=== PATIENT | female | born 1950 | race Caucasian/White ===

== ENCOUNTER → 2017-03-21 | Outpatient (CLI) | payer BC | LOC: RAD 13:32 | PROVIDERS: ATTEND Family Medicine | DX: Z12.31 Encounter for screening mammogram for malignant neoplasm of breast (principal) | CPT/HCPCS: 77067 ==

== ENCOUNTER → 2017-10-13 | Outpatient (CLI) | payer MEDICARE ==
[2017-10-13 14:47] LABS: BASOPHILS % (AUTO) 1 % (0-10); EOSINOPHILS # (AUTO) 0.2 10^3/uL (0.0-0.3); EOSINOPHILS % (AUTO) 2 % (0-10); HEMATOCRIT 34 % (35-52); LYMPHOCYTES # (AUTO) 1.5 X 10^3 (1.0-4.0); LYMPHOCYTES % (AUTO) 21 % (12-44); MEAN CORPUSCULAR HEMOGLOBIN 29 PG (25-34); MEAN CORPUSCULAR HGB CONC 33 G/DL (32-36); MEAN CORPUSCULAR VOLUME 90 FL (80-99); MEAN PLATELET VOLUME 10.4 FL (7.4-10.4); MONOCYTES # (AUTO) 0.6 X 10^3 (0.0-1.0); MONOCYTES % (AUTO) 9 % (0-12); NEUTROPHILS # (AUTO) 4.7 X 10^3 (1.8-7.8); NEUTROPHILS % (AUTO) 67 % (42-75); PLATELET COUNT 256 10^3/uL (130-400); RED BLOOD COUNT 3.73 10^6/uL (4.35-5.85); RED CELL DISTRIBUTION WIDTH 13.7 % (10.0-14.5); WHITE BLOOD COUNT 7.1 10^3/uL (4.3-11.0)
[2017-10-13 15:10] LABS: ALANINE AMINOTRANSFERASE 27 U/L (0-55); ALBUMIN 3.7 GM/DL (3.2-4.5); ALKALINE PHOSPHATASE 112 U/L (40-136); BILIRUBIN,TOTAL 0.6 MG/DL (0.1-1.0); BUN/CREATININE RATIO 21; CALCIUM 9.4 MG/DL (8.5-10.1); CARBON DIOXIDE 25 MMOL/L (21-32); CHLORIDE 107 MMOL/L (98-107); CREATININE SERUM 0.63 MG/DL (0.60-1.30); GFR ESTIMATED > 60; GLUCOSE 125 MG/DL (70-105); SODIUM 144 MMOL/L (135-145); TOTAL PROTEIN 6.9 GM/DL (6.4-8.2)
== END ==
LOC: HH 08:00
PROVIDERS: ATTEND Family Medicine
DX: R00.0 Tachycardia, unspecified (principal)
CPT/HCPCS: 80053; 84443; 85025

== ENCOUNTER 2018-10-23 21:08 | Emergency (ER) | payer MEDICARE ==
[~2018-10-23] VITALS: Ht 154.9 cm; Wt 79.4 kg
[2018-10-23] MEDS ORDERED: GABA-488 (21:57)
[2018-10-23] MEDS ORDERED: LORA-714 PO (21:57)
[2018-10-23] MEDS ORDERED: MELO15TA39 (21:57)
[2018-10-23] MEDS ORDERED: NF-ESOM40C PO (21:57)
[2018-10-23] MEDS ORDERED: TRAM50TA2 (21:57)
[2018-10-23] MEDS ORDERED: ATOR10TA66 (21:57)
--- OUTSIDE RECORDS SUMMARY | 2018-10-23 22:09 | XMS REPORT | Continuity of Care Document ---
Author Organization Unknown Address Unknown Allergies Active Description Code Type Severity Reaction Onset Reported/Identified Relationship to Patient Clinical Status Yes IODINE AND CIPRO IODINE AND CIPRO Unknown N/A 03/20/2010 Medications There is no data. Problems Date Dx Coded Attending Type Code Diagnosis Diagnosed By 03/20/2010 Ot 211.3 03/20/2010 Ot 285.9 03/20/2010 Ot 530.81 03/20/2010 Ot 553.3 03/20/2010 Ot 578.1 12/16/2014 Ot 783.21 12/16/2014 Ot 786.2 12/16/2014 Ot 285.9 12/16/2014 Ot 285.9 12/16/2014 Ot 535.50 12/16/2014 Ot 792.1 12/16/2014 Ot V76.12 12/16/2014 Ot 786.50 12/16/2014 Ot 959.11 12/16/2014 Ot E000.8 12/16/2014 Ot E849.0 12/16/2014 Ot E888.9 12/16/2014 KANDACE FLEMING DO Ot V76.12 12/16/2014 KANDACE FLEMING DO Ot 793.80 12/16/2014 KANDACE FLEMING DO Ot 611.89 12/16/2014 KANDACE FLEMING DO Ot V67.59 12/30/2014 KANDACE FLEMING DO Ot V76.12 02/09/2016 Ot V76.12 OTH SCREEN MAMMO- MALIGN NEOPLASM OF MOISES 02/09/2016 Ot 786.50 CHEST PAIN NOS 02/09/2016 Ot 959.11 OTH INJURY OF CHEST WALL 02/09/2016 Ot E000.8 OTHER EXTERNAL CAUSE STATUS 02/09/2016 Ot E849.0 ACCIDENT IN HOME 02/09/2016 Ot E888.9 FALL NOS 02/09/2016 KANDACE FLEMING DO Ot V76.12 OTH SCREEN MAMMO-MALIGN NEOPLASM OF MOISES 02/09/2016 GELLENDER DO, KANDACE Mcgee Ot 793.80 UNSPEC ABNORMAL MAMMOGRAM 02/09/2016 GELLENDER DO, KANDACE Mcgee Ot 611.89 OTHER SPECIFIED DISORDERS OF BREAST 02/09/2016 GELLENDER DO, KANDACE Mcgee Ot V67.59 FOLLOW-UP EXAM NEC 02/09/2016 GELLENDER DO, KANDACE Mcgee Ot V76.12 OTH SCREEN MAMMO-MALIGN NEOPLASM OF MOISES 02/14/2016 GELLENDER DO, KANDACE Mcgee Ot Z12.31 ENCNTR SCREEN MAMMOGRAM FOR MALIGNANT NE 02/22/2016 GELLENDER DO, KANDACE Mcgee Ot Z12.31 ENCNTR SCREEN MAMMOGRAM FOR MALIGNANT NE 04/03/2017 GELLENDER DO, KANDACE Mcgee Ot Z12.31 ENCNTR SCREEN MAMMOGRAM FOR MALIGNANT NE 10/13/2017 GELLENDER DO, KANDACE Mcgee Ot V76.12 OTH SCREEN MAMMO-MALIGN NEOPLASM OF MOISES 10/13/2017 GELLENDER DO, KANDACE Mcgee Ot 793.80 UNSPEC ABNORMAL MAMMOGRAM 10/13/2017 GELLENDER DO, KANDACE Mcgee Ot 611.89 OTHER SPECIFIED DISORDERS OF BREAST 10/13/2017 GELLENDER DO, KANDACE Mcgee Ot V67.59 FOLLOW-UP EXAM NEC 10/13/2017 GELLENDER DO, KANDACE Mcgee Ot V76.12 OTH SCREEN MAMMO-MALIGN NEOPLASM OF MOISES 10/13/2017 GELLENDER DO, KANDACE Mcgee Ot Z12.31 ENCNTR SCREEN MAMMOGRAM FOR MALIGNANT NE 10/13/2017 GELLENDER DO, KANDACE Mcgee Ot Z12.31 ENCNTR SCREEN MAMMOGRAM FOR MALIGNANT NE 10/14/2017 GELLENDER DO, KANDACE Mcgee Ot R00.0 TACHYCARDIA, UNSPECIFIED 11/06/2017 GELLENDER DO, KANDACE Mcgee Ot R00.0 TACHYCARDIA, UNSPECIFIED 05/08/2018 GELLENDER DO, KANDACE Mcgee Ot V76.12 OTH SCREEN MAMMO-MALIGN NEOPLASM OF MOISES 05/08/2018 GELLENDER DO, KANDACE Mcgee Ot 793.80 UNSPEC ABNORMAL MAMMOGRAM 05/08/2018 GELLENDER DO, KANDACE Mcgee Ot 611.89 OTHER SPECIFIED DISORDERS OF BREAST 05/08/2018 GELLENDER DO, KANDACE Mcgee Ot V67.59 FOLLOW-UP EXAM NEC 05/08/2018 GELLENDER DO, KANDACE Mcgee Ot V76.12 OTH SCREEN MAMMO-MALIGN NEOPLASM OF MOISES 05/08/2018 GELLENDER DO, KANDACE Mcgee Ot Z12.31 ENCNTR SCREEN MAMMOGRAM FOR MALIGNANT NE 05/08/2018 GELLENDER DO, KANDACE Mcgee Ot Z12.31 ENCNTR SCREEN MAMMOGRAM FOR MALIGNANT NE 05/08/2018 GELLENDER DO, KANDACE Mcgee Ot R00.0 TACHYCARDIA, UNSPECIFIED 05/08/2018 GELLENDER DO, KANDACE Mcgee Ot Z12.31 ENCNTR SCREEN MAMMOGRAM FOR MALIGNANT NE 05/11/2018 GELLENDER DO, KANDACE Mcgee Ot Z12.31 ENCNTR SCREEN MAMMOGRAM FOR MALIGNANT NE 05/29/2018 GELLENDER DO, KANDACE Mcgee Ot Z12.31 ENCNTR SCREEN MAMMOGRAM FOR MALIGNANT NE Procedures There is no data. Results Test Result Range Complete blood count (CBC) with automated white blood cell (WBC) differential - 10/13/17 14:41 Blood leukocytes automated count (number/volume) 7.1 10*3/uL 4.3-11.0 Blood erythrocytes automated count (number/volume) 3.73 10*6/uL 4.35-5.85 Venous blood hemoglobin measurement (mass/volume) 11.0 g/dL 11.5-16.0 Blood hematocrit (volume fraction) 34 % 35-52 Automated erythrocyte mean corpuscular volume 90 [foz_us] 80-99 Automated erythrocyte mean corpuscular hemoglobin (mass per erythrocyte) 29 pg 25-34 Automated erythrocyte mean corpuscular hemoglobin concentration measurement (mass/volume) 33 g/dL 32-36 Automated erythrocyte distribution width ratio 13.7 % 10.0- 14.5 Automated blood platelet count (count/volume) 256 10*3/uL 130-400 Automated blood platelet mean volume measurement 10.4 [foz_us] 7.4-10.4 Automated blood neutrophils/100 leukocytes 67 % 42-75 Automated blood lymphocytes/100 leukocytes 21 % 12-44 Blood monocytes/100 leukocytes 9 % 0-12 Automated blood eosinophils/100 leukocytes 2 % 0-10 Automated blood basophils/100 leukocytes 1 % 0-10 Blood neutrophils automated count (number/volume) 4.7 10*3 1.8-7.8 Blood lymphocytes automated count (number/volume) 1.5 10*3 1.0-4.0 Blood monocytes automated count (number/volume) 0.6 10*3 0.0- 1.0 Automated eosinophil count 0.2 10*3/uL 0.0-0.3 Automated blood basophil count (count/volume) 0.0 10*3/uL 0.0-0.1 Comprehensive metabolic panel - 10/13/17 14:41 Serum or plasma sodium measurement (moles/volume) 144 mmol/L 135-145 Serum or plasma potassium measurement (moles/volume) 4.0 mmol/L 3.6-5.0 Serum or plasma chloride measurement (moles/volume) 107 mmol/L 98-107 Carbon dioxide 25 mmol/L 21-32 Serum or plasma anion gap determination (moles/volume) 12 mmol/L 5-14 Serum or plasma urea nitrogen measurement (mass/volume) 13 mg/dL 7-18 Serum or plasma creatinine measurement (mass/volume) 0.63 mg/dL 0.60-1.30 Serum or plasma urea nitrogen/creatinine mass ratio 21 NRG Serum or plasma creatinine measurement with calculation of estimated glomerular filtration rate > NRG Serum or plasma glucose measurement (mass/volume) 125 mg/dL 70-105 Serum or plasma calcium measurement (mass/volume) 9.4 mg/dL 8.5-10.1 Serum or plasma total bilirubin measurement (mass/volume) 0.6 mg/dL 0.1-1.0 Serum or plasma alkaline phosphatase measurement (enzymatic activity/volume) 112 U/L 40-136 Serum or plasma aspartate aminotransferase measurement (enzymatic activity/volume) 21 U/L 5-34 Serum or plasma alanine aminotransferase measurement (enzymatic activity/volume) 27 U/L 0-55 Serum or plasma protein measurement (mass/volume) 6.9 g/dL 6.4-8.2 Serum or plasma albumin measurement (mass/volume) 3.7 g/dL 3.2-4.5 THYROID STIMULATING HORMONE - 10/13/17 14:41 THYROID STIMULATING HORMONE 0.85 u[iU]/mL 0.35-4.94 Encounters ACCT No. Visit Date/Time Discharge Status Pt. Type Provider Facility Loc./Unit Complaint [id number] 05/08/2018 14:16:00 05/08/2018 23:59:59 CLS Outpatient KANDACE FLEMING DO [facility] RAD SCREENING [id number] 10/13/2017 08:00:00 10/13/2017 23:59:59 CLS Outpatient KANDACE FLEMING DO [facility] HH ELEVATED HEART RATE [id number] 03/21/2017 13:32:00 03/21/2017 23:59:59 CLS Outpatient KANDACE FLEMING DO [facility] RAD YEARLY [id number] 02/09/2016 12:23:00 02/09/2016 23:59:59 CLS Outpatient KANDACE FLEMING DO [facility] RAD SCREENING [id number] 12/16/2014 13:21:00 12/16/2014 23:59:59 CLS Outpatient KANDACE FLEMING DO [facility] RAD SCREENING [id number] 08/13/2013 07:47:00 08/13/2013 23:59:59 CLS Outpatient KANDACE FLEMING DO [facility] RAD 6 MONTH EVALUATION [id number] 12/07/2012 12:37:00 12/07/2012 23:59:59 CLS Outpatient KANDACE FLEMING DO [facility] RAD ABN [facility] [id number] 11/25/2012 09:59:00 11/25/2012 23:59:59 CLS Outpatient KANDACE FLEMING DO [facility] RAD SCREENING [id number] 12/16/2014 13:21:00 Document Registration [id number] 01/21/2011 09:30:00 Document Registration [id number] 05/07/2010 07:28:00 Document Registration [id number] 03/20/2010 09:41:00 Document Registration [id number] 02/28/2010 12:18:00 Document Registration [id number] 02/27/2010 12:11:00 Document Registration
[2018-10-23] MEDS ORDERED: predniSONE 20 MG TAB PO ONE (22:15)
[2018-10-23] MEDS ORDERED: PRD20T PO (22:18)
--- NOTE | 2018-10-23 22:18 | ED Lower Extremity ---
General Chief Complaint: Lower Extremity Stated Complaint: REDNESS IN BOTH LEGS Nursing Triage Note: redness to bilateral lower legs today. Nursing Sepsis Screen: No Definite Risk History of Present Illness Date Seen by Provider: Oct 23, 2018 Time Seen by Provider: 20:05 Initial Comments 68-year-old female presents for a rash to bilateral lower extremities. She denies any new skin products, detergents, or other irritants. She was working in her yard last evening and believes her family program specialist may have put chemicals on the yard. 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 Onset: this afternoon Pain/Injury Location: bilateral leg (lower legs distal to the knee) Method of Injury: unknown Allergies and Home Medications Allergies Coded Allergies: Quinolones (Verified Allergy, Unknown, 10/23/18) Uncoded Allergies: IODINE AND CIPRO (Allergy, Unknown, 10/23/18) Patient Home Medication List Home Medication List Reviewed: Yes Review of Systems Constitutional: no symptoms reported, see HPI Skin: see HPI, rash All Other Systems Reviewed Negative Unless Noted: Yes Past Urbitzq-Ixsprq-Fpsyhn Hx Past Med/Social Hx: Reviewed Nursing Past Med/Soc Hx Patient Social History Alcohol Use: Rarely Uses Recreational Drug Use: No Smoking Status: Never a Smoker 2nd Hand Smoke Exposure: No Recent Foreign Travel: No Contact w/Someone Who Travel: No Recent Infectious Disease Expo: No Recent Hopitalizations: No Immunizations Up To Date Tetanus Booster (TDap): Unknown Seasonal Allergies Seasonal Allergies: Yes Past Medical History Surgeries: Yes Section, Orthopedic Respiratory: No Cardiac: Yes High Cholesterol Neurological: Yes 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 oz. 79.325066id; BMI Method:Stated General Appearance: WD/WN, no apparent distress Cardiovascular: normal peripheral pulses, regular rate, rhythm Respiratory: chest non-tender, lungs clear, normal breath sounds Neurologic/Psychiatric: no motor/sensory deficits, alert, normal mood/affect, oriented x 3 Skin: rash (petechial rash right lower extremity greater than left, anterior aspect only. No signs of cellulitis, no induration or warmth or erythema. Pedal pulses 2+ and symmetric, negative Homans sign.) Lymphatic: no adenopathy Progress/Results/Core Measures Results/Orders My Orders Orders - MALACHI GALLEGOS Prednisone Tablet (Deltasone Tablet) (10/23/18 22:15) Vital Signs/I&O 10/23/18 21:50 Temp 98.2 Pulse 106 Resp 18 B/P (MAP) 153/95 (114) Pulse Ox 96 O2 Delivery Room Air Blood Pressure Mean: 114 Departure Impression Primary Impression: Petechial rash Disposition: 01 HOME, SELF-CARE Condition: Improved Departure-Patient Inst. Decision time for Depature: 22:15 Referrals: KANDACE FLEMING DO (PCP/Family) Primary Care Physician Patient Instructions: Skin Rash (DC) Add. Discharge Instructions: Warm moist compresses to rash. Continue to use your normal skin care products. Take prednisone as directed. Follow-up with your primary care provider in 2-3 days if symptoms do not improve or worsen. Return to emergency department for fever greater than 101, signs of cellulitis, or new concerns. All discharge instructions reviewed with patient and/or family. Voiced understanding. Scripts Prednisone (Prednisone) 20 Mg Tab 40 MG PO DAILY, #6 TAB 0 Refills Prov: MALACHI GALLEGOS 10/23/18 MALACHI GALLEGOS Oct 23, 2018 22:18
[2018-10-23 22:21] VITALS: BP 153/95
== END 2018-10-23 22:21 | disposition home or self-care (01) ==
LOC: EDUNIT# 21:08 → ER 21:10
DX: R21 Rash and other nonspecific skin eruption (principal); E78.00 Pure hypercholesterolemia, unspecified; G62.9 Polyneuropathy, unspecified; K21.9 Gastro-esophageal reflux disease without esophagitis; Z88.8 Allergy status to other drugs, medicaments and biological substances; Z91.041 Radiographic dye allergy status; Z98.890 Other specified postprocedural states
CPT/HCPCS: 99283

== ENCOUNTER → 2019-03-16 | Outpatient (CLI) | payer MEDICARE ==
[~2019-03-16] MED LIST: ATOR10TA66; GABA-488; LORA-714 PO; MELO15TA39; NF-ESOM40C PO; PRD20T PO; TRAM50TA2
--- NOTE | 2019-03-16 13:06 | Diagnostic Imaging Report ---
INDICATION: Shortness of breath, history of Hodgkin's lymphoma 34 years ago.. TECHNIQUE: Two view chest 12:33 PM CORRELATION STUDY: 02/27/2010 FINDINGS: The heart size, mediastinal configuration and pulmonary vasculature are stable and within normal limits. Limited depth of inspiration some crowding at lung bases. No consolidating infiltrate. Slight accentuated thoracic kyphosis with degenerative changes of the thoracic spine. IMPRESSION: 1. Negative for acute abnormality of the chest. Dictated by: Dictated on workstation # [id number]
== END ==
LOC: RAD 12:14
PROVIDERS: ATTEND Family Medicine
DX: R06.02 Shortness of breath (principal); Z85.71 Personal history of Hodgkin lymphoma
CPT/HCPCS: 71046

== ENCOUNTER → 2021-04-18 | Outpatient (CLI) | payer MEDICARE ==
[~2021-04-18] MED LIST changes: +LORA-53 PO; -LORA-714 PO; -TRAM50TA2; +TRM50T
--- NOTE | 2021-04-18 15:07 | Diagnostic Imaging Report ---
PROCEDURE: CT abdomen and pelvis without contrast. TECHNIQUE: Multiple contiguous axial images were obtained through the abdomen and pelvis without the use of intravenous contrast. Auto Exposure Controls were utilized during the CT exam to meet ALARA standards for radiation dose reduction. INDICATION: Lymphoma, weight loss, left lower quadrant pain. I have no relevant comparison. FINDINGS: Spleen size normal and appeared nonfocal. Unopacified liver unremarkable. No biliary abnormality. There is a nonobstructing 3 mm stone within the left kidney. No hydroureteronephrosis. No perinephric or periureteric edema. No opaque ureteral stone. The unopacified bladder normal. Uterus and adnexa unremarkable. There is no diverticulitis. There is no evidence for appendicitis. There is no small or large bowel obstruction. No ascites, abscess, hematoma or acute fluid collection. No pneumatosis or free gas. Adrenals and pancreas unremarkable. The calcified aorta nonaneurysmal. Lung bases and bony structures appeared nonacute. IMPRESSION: 1. No adenopathy, organomegaly or mass. No bowel, biliary or urinary tract obstruction and no inflammatory process or acute abnormalities. 2. Nonobstructing left kidney stone. Dictated by: Dictated on workstation # [id number]
== END ==
LOC: RAD 14:15
PROVIDERS: ATTEND Family Medicine
DX: C85.90 Non-Hodgkin lymphoma, unspecified, unspecified site (principal); N20.0 Calculus of kidney
CPT/HCPCS: 74176

== ENCOUNTER → 2021-05-01 | Outpatient (CLI) | payer MEDICARE ==
--- NOTE | 2021-05-01 14:17 | Diagnostic Imaging Report ---
INDICATION: Routine screening. COMPARISON: 05/08/2018 and 03/21/2017. TECHNIQUE: 2D and 3D bilateral screening mammography was performed with CAD. FINDINGS: Both breasts are heterogeneously dense, limiting the sensitivity of mammography. Benign nodules in both breasts appear stable. No new mass or malignant-appearing microcalcifications are seen. There are benign calcifications in both breasts. The axillae are unremarkable. IMPRESSION: No mammographic features suspicious for malignancy are identified. ACR BI-RADS Category 2: Benign findings. Result letter will be mailed to the patient. Note: At least 10% of breast cancer is not imaged by mammography. Dictated by: Dictated on workstation # [id number]
== END ==
LOC: RAD 13:00
PROVIDERS: ATTEND Family Medicine
DX: Z12.31 Encounter for screening mammogram for malignant neoplasm of breast (principal)
CPT/HCPCS: 77063; 77067

== ENCOUNTER → 2021-07-24 | Outpatient (CLI) | payer MEDICARE ==
--- NOTE | 2021-07-24 11:19 | Diagnostic Imaging Report ---
PROCEDURE: CT urinary tract, rule out kidney stone. TECHNIQUE: Multiple contiguous axial images were obtained through the abdomen and pelvis without the use of intravenous contrast. Auto Exposure Controls were utilized during the CT exam to meet ALARA standards for radiation dose reduction. INDICATION: Left flank pain. Hematuria. History of non-Hodgkin's lymphoma. COMPARISON: 04/18/2021. FINDINGS: The heart is unremarkable. Numerous faint groundglass nodules are seen throughout the included lung bases, similar to the prior exam. Calculus is seen in the proximal left ureter measuring 0.4 cm with mild left-sided hydroureteronephrosis. No obstructing calculi are seen in the right kidney. No hydronephrosis on the right. The urinary bladder is nondistended. The liver, spleen, pancreas, and adrenal glands have a normal appearance. There is no pathologically enlarged mesenteric or retroperitoneal adenopathy. The bowel loops are nondilated. There is no free fluid or free air. No acute osseous abnormalities. There is calcified aortic and iliac atherosclerotic plaque without aneurysm. There is no free air, loculated collection, or adenopathy in the pelvis. IMPRESSION: 1. Obstructing calculus in the proximal left ureter measuring 0.4 cm with mild left-sided hydroureteronephrosis. 2. Stable appearance of faint groundglass opacities in the included lung bases. Consider dedicated evaluation with chest CT to further evaluate. Dictated by: Dictated on workstation # [id number]
== END ==
LOC: RAD 11:00
PROVIDERS: ATTEND Family Medicine
DX: N20.1 Calculus of ureter (principal); N13.30 Unspecified hydronephrosis; R91.8 Other nonspecific abnormal finding of lung field; Z85.72 Personal history of non-Hodgkin lymphomas
CPT/HCPCS: 74176

== ENCOUNTER → 2021-07-25 | Outpatient (CLI) | payer MEDICARE ==
--- NOTE | 2021-07-25 12:52 | Diagnostic Imaging Report ---
INDICATION: Nephrolithiasis. EXAMINATION: KUB at 12:47 PM. FINDINGS: There are two small opacities in the region of the left proximal ureter that could be ureteral calculi. There is a large amount of stool throughout the colon. There are some calcified phleboliths in the pelvis. IMPRESSION: Suspected left ureterolithiasis. Dictated by: Dictated on workstation # [id number]
== END ==
LOC: RAD 12:24
PROVIDERS: ATTEND Urology
DX: N20.2 Calculus of kidney with calculus of ureter (principal)
CPT/HCPCS: 74018

== ENCOUNTER → 2021-08-02 | Outpatient (CLI) | payer MEDICARE ==
[~2021-08-02] MED LIST changes: -ATOR10TA66; +ATOR10TA66 PO; -GABA-488; +GABA-488 PO; +KETO10TA PO; +METH-731 PO; +NITR-65 PO; -TRM50T; +TRM50T PO
--- NOTE | 2021-08-02 14:21 | Diagnostic Imaging Report ---
EXAMINATION: Abdomen 1 view HISTORY: LEFT URETERAL STONE COMPARISON: 07/25/2021 FINDINGS: There is a moderate amount of gas and stool throughout the colon. Nonobstructive bowel gas pattern. Stable 0.4 cm faint opacity overlying the left paraspinous abdomen which may correspond to the previously seen ureteral calculus. The osseous structures are intact. IMPRESSION: Stable appearance of 0.4 cm opacity overlying the expected location of the proximal left ureter. Dictated by: Dictated on workstation # [id number]
== END ==
LOC: RAD 13:26
PROVIDERS: ATTEND Urology
DX: N20.1 Calculus of ureter (principal)
CPT/HCPCS: 74018

== ENCOUNTER 2021-08-03 05:27 | Outpatient (CLI) | payer MEDICARE ==
[~2021-08-03] VITALS: Ht 154.9 cm; Wt 78.2 kg
[~2021-08-03 05:27] MED LIST changes: -KETO10TA PO; -METH-731 PO; -NITR-65 PO
[2021-08-06] MEDS ORDERED: METH-731 PO (10:48)
[2021-08-07] MEDS ORDERED: KETO10TA PO (11:10)
[2021-08-07] MEDS ORDERED: NITR-65 PO (11:10)
== END 2021-08-06 11:00 | disposition home or self-care (01) ==
LOC: PREOP 05:27
PROVIDERS: ATTEND Urology
DX: Z01.818 Encounter for other preprocedural examination (principal)

== ENCOUNTER 2021-08-07 07:48 | Day surgery (SDC) | payer MEDICARE ==
[~2021-08-07] VITALS: Ht 154.9 cm; Wt 78.2 kg
[2021-08-07] VITALS (10 sets, daily range): BP systolic 146–163; BP diastolic 69–89
[~2021-08-07 07:48] MED LIST changes: +METH-731 PO
[2021-08-07] MEDS ORDERED: cefTRIAXone 1 GM PRE-MIX 50 ML IV ONE (08:15)
--- NOTE | 2021-08-07 08:23 | Progress Note-Pre Operative ---
Pre-Operative Progress Note H&P Reviewed The H&P was reviewed, patient examined and no changes noted. Date Seen by Provider: Aug 07, 2021 Time Seen by Provider: 08:23 Date H&P Reviewed: Aug 07, 2021 Time H&P Reviewed: 08:23 Pre-Operative Diagnosis: LT URETERAL STONE KINGSLEY LA MD Aug 07, 2021 08:23
--- NOTE | 2021-08-07 09:00 | Diagnostic Imaging Report ---
INDICATION: ESWL. Study compared with radiograph 08/02/2020. FINDINGS: Faint radiopacity projecting lateral to the 3rd lumbar transverse process cannot be detected at today's exam. Pelvic calcifications identical and morphology and distribution from prior and presumed phleboliths. There is a faint radiopacity overlying the distal tip of the right 2nd lumbar transverse processes is unchanged and may be a right ureteral stone. IMPRESSION: Mid left ureteral calculus can no longer be identified. Stable calcifications in the pelvis. Indeterminate calcification in the right flank. No adverse development from prior. Dictated by: Dictated on workstation # [id number]
[2021-08-07] MEDS ORDERED: LACTATED RINGERS 1,000 ML IV PRN (09:15)
--- NOTE | 2021-08-07 09:57 | Progress Note-Post Operative ---
Post-Operative Progess Note Surgeon (s)/Healthcare Facility Administrator (s) Surgeon KINGSLEY LA MD Healthcare Facility Administrator: NONE Pre-Operative Diagnosis LT URETERAL STONE Post-Operative Diagnosis SAME Procedure & Operative Findings Date of Procedure 08/07/21 Procedure Performed/Findings CYSTOSCOPY, LT URETEROSCOPY WITH STONE FRAGMENTATION AND RETROGRADE UROGRAM Anesthesia Type GENERAL Estimated Blood Loss Estimated blood loss (mL): NONE Specimens/Packing Specimens Removed NONE Packing: NONE KINGSLEY LA MD Aug 07, 2021 09:57
--- NOTE | 2021-08-07 09:59 | Discharge Inst-Urology ---
Discharge Inst-Urology Reconcile Patient Problems Problems Reviewed?: Yes Final Diagnosis RT RENAL STONE Patient Instructions/Follow Up Plan/Assessment/Instructions Please make appointment to been seen in office in 3 weeks. Increase oral fluids for 48 hours and then as needed. Diet and Activity as tolerated. If questions or concerns contact your physician Or seek help at emergency department. KINGSLEY LA MD Aug 07, 2021 09:59
[2021-08-07] MEDS ORDERED: fentaNYL INJ 100 MCG/2 ML AMP ONE (10:08)
[2021-08-07] MEDS ORDERED: ROCURONIUM 10 MG/ML 5 ML SYRINGE IV ONE (10:08)
[2021-08-07] MEDS ORDERED: ONDANSETRON 4 MG/2 ML (SDV) Z0FRAN ONE (10:08)
[2021-08-07] MEDS ORDERED: NEOSTIGMINE 3 MG/3 ML VIAL ONE (10:08)
[2021-08-07] MEDS ORDERED: LIDOCAINE PF 2% 5 ML (XYLOCAINE) VIAL ONE (10:08)
[2021-08-07] MEDS ORDERED: proPOfol 200 MG/20 ML (DIPRIVAN) VIAL IV ONE (10:08)
[2021-08-07] MEDS ORDERED: GLYCOPYRROLATE 0.2 MG/ML (ROBINUL) 2 ML VIAL ONE (10:08)
[2021-08-07] MEDS ORDERED: SEVOFLURANE (ULTANE) 15 ML INHAL SOLN ONE (10:42)
[2021-08-07] MEDS ORDERED: ONDANSETRON 4 MG/2 ML (SDV) Z0FRAN IVP PRN (11:00)
[2021-08-07] MEDS ORDERED: morphine INJ 10 MG/ML 1ML (SYR OR VIAL) IVP ONE (11:00)
[2021-08-07] MEDS ORDERED: KETO10TA PO (11:10)
[2021-08-07] MEDS ORDERED: NITR-65 PO (11:10)
--- NOTE | 2021-08-07 11:14 | Anesthesia-General Post-Op ---
General Patient Condition Mental Status/LOC: Same as Preop Cardiovascular: Satisfactory Nausea/Vomiting: Absent Respiratory: Satisfactory Pain: Controlled Complications: Absent Post Op Complications Complications None Follow Up Care/Instructions Patient Instructions None needed. Anesthesia/Patient Condition Patient Condition Patient is doing well in PACU, no complaints, stable vital signs, no apparent adverse anesthesia problems. CRISTY ANTHONY DO Aug 07, 2021 11:14
--- NOTE | 2021-08-07 15:09 | OPERATIVE REPORT ---
DATE OF SERVICE: 08/07/2021 PREOPERATIVE DIAGNOSIS: Left ureteral stone. POSTOPERATIVE DIAGNOSIS: Left ureteral stone. OPERATION PERFORMED: Cystoscopy, left ureteroscopy with stone fragmentation, and retrograde urogram. SURGEON: Gurpreet La MD ANESTHESIA: General. COMPLICATIONS: None. DESCRIPTION OF PROCEDURE: Under satisfactory general anesthesia, the patient in lithotomy position, genitalia were prepped and draped in the usual sterile fashion. Cystoscope was introduced under vision. The bladder was normal. There was a sluggish efflux on the left side; otherwise, negative. Using the foroblique lens, I dilated the left ureteral orifice intramural portion. Doing so, I felt much have fragmented the stone that was in the distal ureter at that time and I could see fragments flow into the bladder. A 6.9 Maori semi-rigid ureteroscope was introduced under vision. I could see the area in the distal ureter where the stone was present. There was no further stone. I went all the way up to the kidney. There were no stones. I injected contrast to confirm no filling defect and complete emptying of the ureter The ureteroscope was withdrawn. The cystoscope was introduced into the bladder and watches good efflux on the left side. The patient tolerated the procedure and anesthesia well and was sent to recovery room in stable condition. Job ID: [id number] DocumentID: [id number] Dictated Date: 08/07/2021 10:48:45 Enamel Buffer Date: 08/07/2021 15:08:40 Dictated By: GURPREET LA MD
== END 2021-08-07 12:35 | disposition home or self-care (01) ==
LOC: SDC 07:48
PROVIDERS: ATTEND Urology
DX: N20.1 Calculus of ureter (principal); K21.9 Gastro-esophageal reflux disease without esophagitis; M19.90 Unspecified osteoarthritis, unspecified site; J30.2 Other seasonal allergic rhinitis; Z85.71 Personal history of Hodgkin lymphoma
CPT/HCPCS: 74018; 76000; 87081

== ENCOUNTER → 2022-08-07 | Outpatient (CLI) | payer MEDICARE ==
[~2022-08-07] MED LIST changes: +KETO10TA PO; +LORA-1389 PO; -LORA-53 PO; +NITR-65 PO
--- NOTE | 2022-08-07 19:26 | Diagnostic Imaging Report ---
INDICATION: Routine screening. COMPARISON: Prior mammograms 05/01/2021 and 05/08/2018. EXAMINATION: 2D and 3D bilateral screening mammography was performed with CAD. The current study was also evaluated with a Computer Aided Detection (CAD) system. FINDINGS: Both breasts are heterogeneously dense, limiting the sensitivity of mammography. There are benign calcifications in the left breast. There are densities noted in both breasts which appear to be slightly more prominent than prior exams. A slightly nodular density in the outer right breast is identified on the CC view. No definite correlate on the MLO view is identified. In addition, there are nodular densities in the outer portions of the left breast, both in the anterior and posterior depth which appear slightly more prominent than prior exams. No definite correlate on the MLO view is seen. Additional views of these areas are recommended. Axillae are unremarkable. No malignant-appearing microcalcifications are seen. IMPRESSION: Nodular densities in the outer portions of both breasts, as described. Additional views are recommended including spot compression and rolled CC views. ACR BI-RADS Category 0: Incomplete. (Needs additional imaging evaluation). Result letter will be mailed to the patient. Note: At least 10% of breast cancer is not imaged by mammography. Dictated by: Dictated on workstation # [id number]
== END ==
LOC: RAD 14:58
PROVIDERS: ATTEND Family Medicine
DX: Z12.31 Encounter for screening mammogram for malignant neoplasm of breast (principal); N63.20 Unspecified lump in the left breast, unspecified quadrant; N63.10 Unspecified lump in the right breast, unspecified quadrant
CPT/HCPCS: 77063; 77067

== ENCOUNTER → 2022-08-22 | Outpatient (CLI) | payer MEDICARE ==
--- NOTE | 2022-08-22 15:07 | Diagnostic Imaging Report ---
Indication: Bilateral breast densities. Patient presents for additional views. Correlation is made with the screening mammogram from 08/07/2022. 2-D and 3-D bilateral diagnostic mammography was performed. The scan included bilateral spot compression CC, rolled CC as well as conventional 90 degree lateral views. Additional views show persistent slightly ovoid nodular density in the outer right breast at mid depth, only seen on the CC views. Further evaluation of this area with ultrasound is recommended. Densities in the left breast appear to resolve with additional views and most likely represent superimposed tissue. No underlying mass is detected. IMPRESSION: BI-RADS 0. 1. Densities in the left breast appear to represent superimposed tissue. 2. Residual density outer right breast mid depth. Further evaluation with ultrasound is recommended and will be performed today. ACR BI-RADS Category 0: Incomplete. (Needs additional imaging evaluation). Result letter will be mailed to the patient. Note: At least 10% of breast cancer is not imaged by mammography. Dictated by: Dictated on workstation # [id number]
--- NOTE | 2022-08-22 15:37 | Diagnostic Imaging Report ---
INDICATION: Right breast density. Correlation is made with the diagnostic mammogram earlier the same day and screening mammogram from 08/07/2022. Sonographic interrogation of the outer right breast was performed. There is an ovoid hypoechoic nodule at the 10 o'clock location of the right breast, 5-6 cm from the nipple measuring 8 mm x 3 mm x 5 mm. This is well defined. No internal vascularity is seen. This has fairly benign features and likely accounts for the mammographic density. No other masses are identified. IMPRESSION: Benign-appearing hypoechoic nodule 10 o'clock location right breast, 5-6 cm from the nipple. This likely accounts for the mammographic density. Followup right breast ultrasound in 6 months is recommended show continued stability. ACR BI-RADS Category 3: Probably benign findings. Result letter will be mailed to the patient. Note: At least 10% of breast cancer is not imaged by mammography. BI-RADS Category 3 Dictated by: Dictated on workstation # [id number]
== END ==
LOC: RAD 13:54
PROVIDERS: ATTEND Family Medicine
DX: N63.11 Unspecified lump in the right breast, upper outer quadrant (principal); R92.2 Inconclusive mammogram
CPT/HCPCS: 76642; 77066; G0279; 77062

== ENCOUNTER → 2023-02-26 | Outpatient (CLI) | payer MEDICARE ==
--- NOTE | 2023-02-26 13:12 | Diagnostic Imaging Report ---
Indication: Six-month follow-up right breast nodule. Correlation is made with prior ultrasound from 08/22/2022. Sonographic interrogation upper outer right breast was performed. Previously noted circumscribed ovoid hypoechoic nodule 10:00 location, 5-6 cm from the nipple is again noted measuring 6 x 3 x 5 mm. This compares with 8 x 3 x 5 mm on prior exam. No new mass is detected. No internal vascularity is seen. IMPRESSION: BI-RADS Category 3 Stable hypoechoic nodule 10:00 location right breast. Additional six-month sonographic follow-up is recommended to show continued stability. ACR BI-RADS Category 3: Probably benign findings.. Dictated by: Dictated on workstation # [id number]
== END ==
LOC: RAD 10:50
PROVIDERS: ATTEND Family Medicine
DX: N63.11 Unspecified lump in the right breast, upper outer quadrant (principal)